=== PATIENT | female | born 1975 | race Caucasian/White ===

== ENCOUNTER 2021-08-08 17:36 | Emergency (ER) | payer SELFPAY ==
--- OUTSIDE RECORDS SUMMARY | 2021-08-08 17:39 | XMS REPORT | Continuity of Care Document ---
:1975 Author Organization [facility] t Address [address] [place] [address] Care Team Providers Name Role Phone MICHELL Maurer Attending Clinician Unavailable Problems This patient has no known problems. Allergies, Adverse Reactions, Alerts This patient has no known allergies or adverse reactions. Medications This patient has no known medications. Procedures This patient has no known procedures. Results Test Description Test Time Test Comments Results Result Comments Source Urinalysis 2018-01-17 13:26:00 Test Item Value Reference Range Interpretation Comme nts Urinalysis (test code = YELLOW Yellow UACLR) Urinalysis (test code = CLEAR Clear UACLY) Urinalysis (test code = 1.036 1.002-1.036 N SPGR) Urinalysis (test code = 5.5 5.0-9.0 N CAT) Urinalysis (test code = Negative Negative UALEU) Urinalysis (test code = Negative Negative UANIT) Urinalysis (test code = Trace mg/dL Neg-Trace PROUADIP) Urinalysis (test code = Negative mg/dL Negative GLUCU) Urinalysis (test code = Negative mg/dL Negative KETU) Urinalysis (test code = 0.2 mg/dL 0.2-1.0 UAUROB) Urinalysis (test code = Small Negative A CAUTIO UABIL) N Urine Bilirubin has a high incidence of fa lse positiveresults due to urine color interfera nce.Interpret results in conj unction with other clinicalf indings. Urinalysis (test code = Negative Negative UABLD) Urine Source: Urine Voided
--- NOTE | 2021-08-08 18:07 | ER ---
Nurse's Notes [facility] Name: Nguyễn Hubbard Age: 46 yrs Sex: Female : 1975 Arrival Date: 08/08/2021 Time: 17:38 Bed 24 Private MD: Diagnosis: Local infection of the skin and subcutaneous tissue, unspecified Presentation: 08/08 17:46 Chief complaint: Patient states: skin sores on Right upper arm, JUMANA legs and back x 6 vg1 months 'that have been gradually getting worse'. Coronavirus screen: Vaccine status: Patient reports receiving the 1st dose of the Covid vaccine. Client denies travel out of the [place] in the last 14 days. Ebola Screen: Patient denies exposure to infectious person. Patient denies travel to an Ebola-affected area in the 21 days before illness onset. Initial Sepsis Screen: Does the patient meet any 2 criteria? No. Patient's initial sepsis screen is negative. Does the patient have a suspected source of infection? No. Patient's initial sepsis screen is negative. Risk Assessment: Do you want to hurt yourself or someone else? Patient reports no desire to harm self or others. Onset of symptoms was February 2021. 17:46 Method Of Arrival: Wheelchair 1 17:46 Acuity: CONNIE 3 vg1 Triage Assessment: 17:47 General: Appears uncomfortable, Behavior is cooperative. Pain: Complains of pain in vg1 back, right arm, right leg and left leg Pain currently is 8 out of 10 on a pain scale. 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 - Social history:: Smoking status: Patient reports the use of cigarette tobacco products, smokes one-half pack cigarettes per day. Screenin:59 Abuse screen: Denies threats or abuse. Nutritional screening: No deficits noted. [facility] Tuberculosis screening: No symptoms or risk factors identified. Fall Risk None identified. Assessment: 17:59 Reassessment: No changes from previously documented assessment. General: Appears in no [facility] apparent distress. Pain: Denies pain. Cardiovascular: No deficits noted. Respiratory: No deficits noted. Vital Signs: 17:46 BP 172 / 97; Pulse 82; Resp 16; Temp 98.1(TE); Pulse Ox 98% on R/A; Weight 104.33 kg; 1 Height 5 ft. 7 in. (170.18 cm); Pain 8/10; 18:13 BP 122 / 76; Pulse 68; Resp 20; Temp 98.3; Pulse Ox 100% on R/A; bh1 17:46 Body Mass Index 36.02 (104.33 kg, 170.18 cm) [facility] ED Course: 17:38 Patient arrived in ED. mr 17:43 Berny Mcarthur PA is PHCP. cp 17:43 Berny Maurer MD is Attending Physician. cp 17:47 Triage completed. [facility] 17:47 Arm band placed on. [facility] 17:51 Gabriela Berumen, DUSTY is Primary Nurse. [facility] 17:59 No apparent distress. 1 17:59 Patient has correct armband on for positive identification. Bed in low position. Call [facility] light in reach. 17:59 No provider procedures requiring assistance completed. [facility] 18:06 Lee Duenas MD is Referral Physician. cp 18:15 Patient did not have IV access during this emergency room visit. [facility] Administered Medications: No medications were administered Medication: 17:59 VIS not applicable for this client. [facility] Outcome: 18:06 Discharge ordered by MD. cp 18:14 Discharged to home ambulatory. [facility] 18:14 Condition: good 18:14 Discharge instructions given to patient, Instructed on discharge instructions, follow up and referral plans. medication usage, Demonstrated understanding of instructions, Prescriptions given X 1. 18:15 Patient left the ED. [facility] Signatures: Ferny Lisbeth mr Berny Mcarthur PA PA cp Garcia, Victoria, RN RN [facility] Gabriela Berumen RN RN [facility]
--- NOTE | 2021-08-08 18:07 | EDPHYS ---
Physician Documentation [facility] Name: Nguyễn Hubbard Age: 46 yrs Sex: Female : 1975 Arrival Date: 08/08/2021 Time: 17:38 Bed 24 Private MD: MIGUEL Physician Berny Maurer HPI: 08/08 17:57 This 46 yrs old Female presents to ER via Wheelchair with complaints of Skin Sore(s). cp 17:57 skin sores. cp 17:57 Description: draining, erythematous, swollen. Onset: The symptoms/episode cp began/occurred 6 month(s) ago. Possible cause(s): history of MRSA. Associated signs and symptoms: The patient has no apparent associated signs or symptoms. 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 - Social history:: Smoking status: Patient reports the use of cigarette tobacco products, smokes one-half pack cigarettes per day. ROS: 18:00 Skin: Positive for diffusely, skin sores. cp 18:00 Constitutional: Negative for body aches, chills, fever. cp 18:00 Cardiovascular: Negative for chest pain. Exam: 18:03 Constitutional: The patient appears in no acute distress, alert, awake, non-toxic, well cp developed, well nourished. 18:03 Cardiovascular: Rate: normal. cp 18:03 Respiratory: the patient does not display signs of respiratory distress, Respirations: normal, no use of accessory muscles, no retractions, labored breathing, is not present. 18:03 Abdomen/GI: Exam negative for discomfort, distension, guarding, Inspection: abdomen appears normal. 18:03 Skin: superficial ulcerated wounds with mild erythema noted diffusely on upper and lower extremities and buttocks with no abscess formed. Vital Signs: 17:46 BP 172 / 97; Pulse 82; Resp 16; Temp 98.1(TE); Pulse Ox 98% on R/A; Weight 104.33 kg; vg1 Height 5 ft. 7 in. (170.18 cm); Pain 8/10; 18:13 BP 122 / 76; Pulse 68; Resp 20; Temp 98.3; Pulse Ox 100% on R/A; bh1 17:46 Body Mass Index 36.02 (104.33 kg, 170.18 cm) vg1 MDM: 17:49 Patient medically screened. cp 18:06 Data reviewed: vital signs, nurses notes. cp 18:06 Differential diagnosis: abscess, cellulitis, insect bite. Counseling: I had a detailed cp discussion with the patient and/or guardian regarding: the historical points, exam findings, and any diagnostic results supporting the discharge/admit diagnosis, the need for outpatient follow up, a family practitioner, to return to the emergency department if symptoms worsen or persist or if there are any questions or concerns that arise at home. Administered Medications: No medications were administered Disposition Summary: 08/08/21 18:06 Discharge Ordered Location: Home cp Problem: an ongoing problem cp Symptoms: are unchanged cp Condition: Stable cp Diagnosis - Local infection of the skin and subcutaneous tissue, unspecified cp Followup: cp - With: Lee Duenas MD - When: 1 week - Reason: Recheck today's complaints Discharge Instructions: - Discharge Summary Sheet cp - MRSA Infection, Diagnosis, Adult cp - MRSA Infection, Self-Care, Adult cp Forms: - Medication Reconciliation Form cp - Thank You Letter cp - Antibiotic Education cp - Prescription Opioid Use cp Prescriptions: - Bactrim DS 800-160 mg Oral Tablet - take 1 tablet by ORAL route every 12 hours for 10 days; 20 tablet; Refills: 0, cp Product Selection Permitted Signatures: Berny Mcarthur PA PA cp Garcia, Victoria, RN RN vg1
[2021-08-08 18:47] VITALS: BP 122/76; TEMP 98.3; O2SAT 100
== END 2021-08-08 18:15 | disposition home or self-care (01) ==
LOC: ER 17:36
DX: L08.9 Local infection of the skin and subcutaneous tissue, unspecified (principal); F17.210 Nicotine dependence, cigarettes, uncomplicated